=== PATIENT | female | born 1960 | race Asian ===

== ENCOUNTER 2017-05-06 01:33 | Emergency (ER) | payer OTHER ==
[~2017-05-06] VITALS: Ht 160 cm; Wt 65.9 kg
[~2017-05-06 01:33] MED LIST: LISI10TA PO; PARKINSON'S MED PO
[2017-05-06] MEDS ORDERED: PRAM0.258 PO (01:52)
[2017-05-06 03:26] VITALS: BP 172/102
== END 2017-05-06 03:31 | disposition home or self-care (01) ==
LOC: EMS 01:33
DX: M54.2 Cervicalgia (principal); I10 Essential (primary) hypertension; Z88.0 Allergy status to penicillin; V43.62XA Car passenger injured in collision with other type car in traffic accident, initial encounter; Y93.89 Activity, other specified; Y92.411 Interstate highway as the place of occurrence of the external cause; Y99.8 Other external cause status
CPT/HCPCS: 72125; 99284